=== PATIENT | female | born 1980 | race Two or more races ===

== ENCOUNTER 2024-12-06 16:24 | Emergency (ER) | payer SELFPAY | END 2024-12-06 17:11 | disposition left against medical advice (07) | LOC: ER 16:24 | DX: N93.9 Abnormal uterine and vaginal bleeding, unspecified (principal); Z53.21 Procedure and treatment not carried out due to patient leaving prior to being seen by health care provider ==

== ENCOUNTER 2025-04-06 09:45 | Inpatient (IN) | payer OTHER ==
[~2025-04-06] VITALS: Ht 160 cm; Wt 74.4 kg
[2025-04-06] MEDS ORDERED: LORazepam 2MG/ML-1ML VIAL IV PRN (10:30)
[2025-04-06 10:34] LABS: Basophils # (auto) 0.1 10 ^3/uL (0-0.2); Basophils % (auto) 0.6 % (0.0-2.0); Eosinophils # (auto) 0.1 10 ^3/uL (0-0.8); Eosinophils % (auto) 0.8 % (0.0-7.0); Hematocrit 38.8 % (36.0-46.0); Hemoglobin 13.4 g/dL (12.2-16.2); Mean Corpuscular Hgb Conc. 34.5 g/dL (32.0-36.0); Mean Corpuscular Volume 95.9 fL (80.0-100.0); Monocytes # (auto) 0.9 10 ^3/uL (0-1.3); Monocytes % (auto) 10.9 % (0.0-12.0); Neutrophils # (auto) 5.4 10 ^3/uL (1.6-8.6); Neutrophils % (auto) 63.7 % (37.0-80.0); Nucleated Red Blood Cells % 0.1 %; Platelet Count (auto) 189 10^3/uL (140-450); Red Blood Cells 4.04 10^6/uL (4.0-5.20); Red Cell Distribution Width 13.5 % (11.8-14.3); White Blood Cell 8.5 10^3/uL (4.4-10.8)
[2025-04-06] MEDS: hydrALAZINE HCL 20 MG/ML VL IV PRN ×2 (10:40→11:15)
[2025-04-06] MEDS: MAGNESIUM SULFATE 100 ML IV ONE (10:41)
[2025-04-06 10:48] LABS: Alkaline Phosphatase 93 U/L (46-116); Anion Gap 9 (5-15); Aspartate Aminotransferase 15 U/L (13-40); BUN/Creatinine Ratio 18.9 (10.0-20.0); Blood Urea Nitrogen 14 mg/dL (9-23); Calcium 8.9 mg/dL (8.7-10.4); Carbon Dioxide 24 mmol/L (20-31); Chloride 104 mmol/L (98-107); Glucose 77 mg/dL (74-106); INR 0.9 (0.9-1.15); Potassium 4.6 mmol/L (3.5-5.1); Prothrombin Time 9.6 sec (9.3-11.8); Sodium 137 mmol/L (136-145); Total Protein 6.4 g/dL (5.7-8.2); Uric Acid 8.6 mg/dL (3.1-7.8)
[2025-04-06 10:49] LABS: Albumin 3.6 g/dL (3.2-4.8); Bilirubin, Total 0.4 mg/dL (0.2-1.0)
[2025-04-06 10:52] LABS: Alanine Aminotransferase < 9 U/L (7-40)
[2025-04-06] MEDS: BETAMETHASONE ACET (30mg/5ml) 5ml Vial 6mg/ml IM ONE (11:04)
[2025-04-06] MEDS: LABETALOL HCL 200 MG TAB PO ONE (11:10)
[2025-04-06] MEDS: MAGNESIUM SULFATE 40MG/ML 1,000 ML IV SCH (11:13)
[2025-04-06] MEDS: LABETALOL HCL 20 MG/4 ML VL IV ONE ×2 (11:15→14:18)
[2025-04-06 12:07] LABS: Urine Bacteria None Seen /hpf (None Seen)
[2025-04-06 12:16] LABS: Urine Blood Negative /uL (Negative); Urine Clarity Clear (Clear); Urine Color Light-Yellow (Yellow); Urine Mucus FEW (None Seen); Urine Protein, UAD 2+ (Negative); Urine Specific Gravity 1.011 (1.001-1.035); Urine Squamous Epithelial Cell None Seen /hpf (<5); Urine Urobilinogen Normal (Negative); Urine WBC 2 /HPF (0-5)
[2025-04-06 12:35] LABS: Protein, Urine 148.9 mg/dL (1-14)
[2025-04-06 12:38] LABS: Creatinine, Urine 55.73 mg/dL (30.0-125.0); Urine Protein/Creatinine Ratio 2.67
[2025-04-06] MEDS ORDERED: LACTATED RINGER'S 1,000 ML IV SCH (13:00)
--- NOTE | 2025-04-06 13:18 | DVHDS2 ---
Physician Discharge Progress N Final Diagnosis: severe pih,ama Operations or Procedures: Operations or Procedures nst reactive reviewed,sono,labs Condition on Discharge: Higher Level of Care Disposition: Discharge Instructions: Diet: See Comment Activity: Activity comment: npo Medications: mg Follow Up Care: Specialist: to [facility] Discharge Statement: "Patient was advised to return to the ER or call 911 if any headaches, dizziness, shortness of breath, chest pain, abdominal pain, bleeding, fevers, or worsening of medical condition. Patient was counseled about treatment plan, medications, possible side effects, patientverbalized understanding. All questions were answered to the best of my ability. This discharge took greater then 30 minutes in planning, reviewing documentation, counseling the patient, and discussing with other team members." Visit Coding OBGYN Date of Service: Apr 06, 2025 Billing Provider: TRISH DE SANTIAGO DO CARDIOVASCULAR TECHNOLOGIST Common Visit Codes: 13777-FEHPNLC OBS CARE (HIGH) CARDIOVASCULAR TECHNOLOGIST Procedure Codes: 67090-37- NON-STRESS TEST TRISH DE SANTIAGO DO Apr 06, 2025 13:18
--- NOTE | 2025-04-06 13:20 | DVHTS ---
Transfer Summary Transfer Summary Date of Admission Apr 06, 2025 at 12:03 Date of Transfer: Apr 06, 2025 Transfer Diagnosis severe pih,ama,31wks preg Brief Hx & Hospital Course: pt is admitted for severe pih,started on mg and labetolol iv,hydralazine iv and labet pox1. she was given celestone.spoke to dr bean at [facility] who accepted pt with dr oro managing pt Transfer to: [facility] Discharge Instructions: via air Transfer Status stable Visit Coding OBGYN Date of Service: Apr 06, 2025 Billing Provider: TRISH DE SANTIAGO DO FIELD OBSERVER Common Visit Codes: 96316-[id number] INP/OBS CARE (HIGH) FIELD OBSERVER Consultation Codes: 40969-V/U INPATIENT CONSULT (HIGH) FIELD OBSERVER Procedure Codes: 89358-05- NON-STRESS TEST TRISH DE SANTIAGO DO Apr 06, 2025 13:20
--- NOTE | 2025-04-06 13:46 | DVHHP2 ---
OB CC & HPI Date Date of Admission: Apr 06, 2025 Patient Identification: : 2 Para: 0 EDC: Jun 05, 2025 EGA: 31wks Chief Complaints: Reason for admission: other (severe pih) Admission Nurse Assessment Rev: No History of Present Complaints pt reported having high bp at home for the last 4 wks finally comes in today and her bp was noted to be 180/100 with 3+ proteinuria ,alvarenga and cramping.efw wa 3-4 ,vx Past Medical History Cardiac: No pertinent Hx Pulmonary: No pertinent Hx Central Nervous System: No pertinent Hx GI: No pertinent Hx Hemotology/Oncology: No pertinent Hx Hepatobiliary: No pertinent Hx Psychiatric: No pertinent Hx Musculoskeletal: No pertinent Hx Rheumotologic: No pertinent Hx Infectious Disease: No peritnent Hx ENT: No pertinent Hx Renal/: No pertinent Hx Endocrine: No pertinent Hx Dermatology: No pertinent Hx Past Surgical History: No pertinent Hx OB History OB History Care: Good Care Ultrasounds: Normal mid trimester US Obstetrical Complications: None Medical Complications: None Allergies: Coded Allergies: NO KNOWN ALLERGIES (Unverified , 04/06/25) Current Medications Current Medications Medications (Trade) Dose Ordered Sig/Abram Route PRN Reason Start Time Stop Time Status Last Admin Hydralazine HCl (Apresoline Injection) 5 mg Q20MP PRN IV SBP>160 or DBP>105 04/06/25 10:15 Magnesium Sulfate 1,000 ml @ 50 mls/hr Q20H IV 04/06/25 10:30 04/06/25 11:13 Lorazepam (Ativan Inj) 4 mg PRN PRN IV preeclampsia 04/06/25 10:30 Hydralazine HCl (Apresoline Injection) 10 mg Q20MP PRN IV SBP>160 or DBP>105 04/06/25 11:15 04/06/25 11:16 Lactated Ringer's 1,000 ml @ 125 mls/hr Q8H IV 04/06/25 13:00 UNV Family & Social History Family/Social History Blood Type: Unknown Rubella: unknown RPR/VDRL: Negative GBS Status: Unknown HBsAG: Negative Review of Systems Constitutional: No symptom reported Ears, Nose, & Throat: No symptom reported Eyes: No symptom reported Pulmonary/Respiratory: No symptom reported Cardiovascular: No symptom reported Gastrointestinal: No symptom reported Genitourinary: No symptom reported Musculoskeletal: No symptom reported Skin: No symptom reported Psychiatric: No symptom reported Endocrine: No symptom reported Hemotologic/Lymphatic: No symptom reported OB Admission Exam Physical Exam Vitals: Vital Signs Date Time Temp Pulse Resp B/P (MAP) Pulse Ox O2 Delivery O2 Flow Rate FiO2 04/06/25 11:16 197/122 04/06/25 11:10 108 HEENT: TMs Normal, Fontanelles Normal, Nasal Mucosa Normal, Eyes non-injected, Oropharynx Normal, PERRLA, Moist Membranes, EOMI Heart: Rhythm Normal Lungs: Clear Abdomen: Non tender Extremities: Normal Reflexes: Normal Cervical Dilatation: Fingertip Effacement: 25% Station: -3 Membranes: Intact Heart Rate: 130's Short Term Variability: Present Retirement Variability: Average (6-25) Contractions on Admission: None OB Plan Plan Admitting Diagnosis: Admitted for transfer to higher level of care, severe preeclampsia and ama Other Plan: transfer to [facility],spoke to dr bean accepted transfer and dr oro will manage Visit Coding OBGYN Date of Service: Apr 06, 2025 Billing Provider: TRISH DE SANTIAGO DO STRONG NITRIC OPERATOR Common Visit Codes: [id number] INP/OBS CARE (HIGH) STRONG NITRIC OPERATOR Consultation Codes: 13952-Y/U INPATIENT CONSULT (HIGH) STRONG NITRIC OPERATOR Procedure Codes: 30008-38- NON-STRESS TEST TRISH DE SANTIAGO DO Apr 06, 2025 13:46
== END 2025-04-06 12:59 | disposition short-term general hospital (02) | DRG 833 ==
LOC: LDRP 09:45 → OBSVTOIN 12:03
PROVIDERS: ADMIT Obstetrics & Gynecology; ATTEND Obstetrics & Gynecology
DX: O14.13 Severe pre-eclampsia, third trimester (principal); Z3A.31 31 weeks gestation of pregnancy
CPT/HCPCS: 36415; 59025; 80053; 81001; 81002; 82570; 83735; 84156; 84550; 85025; 85610; 85730; 94760; 96360; 96361; 96365; 96366; 96372; 96374; 96375; G0378

== ENCOUNTER → 2025-05-19 | Outpatient (CLI) | payer OTHER | END | disposition home or self-care (01) | LOC: LAB 10:25 | PROVIDERS: ATTEND Obstetrics & Gynecology | DX: N84.1 Polyp of cervix uteri (principal) ==